=== PATIENT | female | born 1975 | race Caucasian/White ===

== ENCOUNTER 2017-10-19 16:40 | Emergency (ER) | payer MEDICARE, SELFPAY ==
[2017-10-19 16:41] VITALS: BMI 29.0
--- NOTE | 2017-10-19 16:42 | XR_ITS ---
XR chest 2V HISTORY: ITS.REASON: chest pain ORDERING PHYSICIAN: Dani Elizondo MD PATIENT AGE: 42 years COMPARISON: None available FINDINGS: Normal heart size. There are multiple pacer wires present to of which are present from the left subclavian approach without a pacemaker generator. Bipolar pacer present also from the right subclavian approach with a pacemaker generator present. No evidence of CHF. Calcified node is present in left hilum. Lungs are clear. No acute bony anomalies. IMPRESSION: Pacemaker present as described above, no acute finding
[2017-10-19 16:46] VITALS: BP 146/95; PULSE 72; RESP 20; TEMP 37; O2SAT 99; BMI 28.1
[2017-10-19 16:58] LABS: Basophils # 0.1 K/mm3 (0-0.2); Basophils % 1.1 % (0.1-2.0); Eosinophils # 0.3 K/mm3 (0.0-0.4); Eosinophils % 3.6 % (0.1-12.0); Hematocrit 42.9 % (37.0-47.0); Hemoglobin 14.5 g/dL (12.2-16.2); Lymphocytes # 2.5 K/mm3 (0.7-4.5); Lymphocytes % 35.1 K/mm3 (10-50); Mean Corpuscular HGB Conc 33.8 g/dL (31.8-35.4); Mean Corpuscular Hemoglobin 29.8 pg (27.0-31.2); Mean Corpuscular Volume 88.3 fl (81-99); Mean Platelet Volume 7.5 fl (7.4-10.4); Monocytes # 0.3 K/mm3 (0.1-1.0); Monocytes % 4.6 % (1.7-9.3); Neutrophils % 55.6 % (37.0-80.0); Platelet Count 257 K/mm3 (142-424); Red Blood Count 4.85 M/mm3 (4.20-5.40); Red Cell Distribution Width 13.9 % (11.5-17.5); White Blood Count 7.1 K/mm3 (4.8-10.8)
[2017-10-19 17:29] LABS: Alanine Aminotransferase 37 U/L (12-78); Albumin Level 4.1 gm/dL (3.4-5.0); Albumin/Globulin Ratio 1.2 (1.1-1.8); Alkaline Phosphatase 84 U/L (46-116); Aspartate Amino Transferase 18 U/L (15-37); Bilirubin,Total 0.3 mg/dL (0.2-1.0); Blood Urea Nitrogen 14 mg/dL (7-18); Calcium 8.9 mg/dL (8.5-10.1); Carbon Dioxide 30 mmol/L (21.0-32.0); Chloride 110 mmol/L (98-107); Creatine Kinase 54 U/L (26-192); Creatinine Clearance Estimated 120 mL/min (0-300); Creatinine,Serum 0.77 mg/dL (0.55-1.02); Estimated Glomerular Filt Rate 81 ml/min (>60); GFR (African American) 99 ML/MIN (>60); Globulin 3.5 gm/dl (1.3-3.2); Glucose 92 mg/dL (74-106); Sodium 148 mmol/L (136-145); Total Protein,Serum 7.6 gm/dL (6.4-8.2); Troponin I < 0.02 ng/ml (0.00-0.06)
[2017-10-19 17:30] LABS: CKMB Relative Index 0.9 U/L (0-4.0); Creatine Kinase MB < 0.5 mg/ml (0.0-3.6)
[2017-10-19 18:31] VITALS: BP 143/105; PULSE 82; O2SAT 97
--- NOTE | 2017-10-19 19:28 | [facility].EDCP ---
ED Disposition Clinical Impression: Chest pain Qualifiers: Chest pain type: unspecified Qualified Code(s): R07.9 - Chest pain, unspecified Disposition: Home, Self-Care Condition on Discharge: Good Referrals: José Chan MD [Staff Physician] - Time of Disposition: 19:52 - Critical Care Critical Care Time: No Attestation: On 10/19/17, the high probability of a clinically significant, sudden or life threatening deterioration of the following system(s) required my full and direct attention, intervention and personal management. The time I documented below is in addition to time spent performing reported procedures but includes the following listed in this critical care notation. Medical Decision Making - Medical Records Medical records reviewed: Yes: I reviewed the patient's medical records. Vital Signs: 10/19/17 16:46 10/19/17 18:31 Temperature 98.6 F Temperature Source Oral Pulse Rate [Left Brachial] 72 82 Respiratory Rate 20 Blood Pressure [Left Arm] 146/95 143/105 Blood Pressure Mean [Left Arm] 112 117 Blood Pressure Source [Left Arm] Automatic Cuff Automatic Cuff Blood Pressure Position [Left Arm] Sitting Supine 02 Sat by Pulse Oximetry 99 97 Oxygen Delivery Method Room Air Room Air - Lab Data Lab results reviewed: Yes: I reviewed the patient's lab results. Lab Results 10/19/17 16:48: WBC 7.1, RBC 4.85, Hgb 14.5, Hct 42.9, MCV 88.3, MCH 29.8, MCHC 33.8, RDW 13.9, Plt Count 257, MPV 7.5, Neut % (Auto) 55.6, Lymph % (Auto) 35.1, [place] % (Auto) 4.6, Eos % (Auto) 3.6, Baso % (Auto) 1.1, Neut # (Auto) 4.0, Lymph # (Auto) 2.5, [place] # (Auto) 0.3, Eos # (Auto) 0.3, Baso # (Auto) 0.1 10/19/17 16:48: Sodium 148 H, Potassium 4.0, Chloride 110 H, Carbon Dioxide 30, Anion Gap 12.0, BUN 14, Creatinine 0.77, Estimated Creat Clear 120, Estimated GFR 81, Est GFR ( Amer) 99, Glucose 92, Calcium 8.9, Total Bilirubin 0.3, AST 18, ALT 37, Alkaline Phosphatase 84, Total Creatine Kinase 54, CK-MB (CK-2) < 0.5, CK-MB (CK-2) Rel Index 0.9, Troponin I < 0.02, Total Protein 7.6, Albumin 4.1, Globulin 3.5 H, Albumin/Globulin Ratio 1.2 Result diagrams: 10/19/17 16:48 10/19/17 16:48 Orders (Tests/Meds): ED MEDICATIONS Generic Name Dose Route Start Last Admin Trade Name Freq PRN Reason Stop Dose Admin Nitroglycerin 0.4 mg 10/19/17 17:24 10/19/17 17:45 Nitrostat 0.4mg Sl Tablet SL 11/18/17 17:23 0.4 mg [id number] PRN Administration Chest Pain Discontinued Medications Generic Name Dose Route Start Last Admin Trade Name Freq PRN Reason Stop Dose Admin Morphine Sulfate 1 mg 10/19/17 19:30 10/19/17 19:43 Morphine 2mg/Ml Syringe IV 10/19/17 19:31 1 mg ONCE ONE Administration Ondansetron HCl 4 mg 10/19/17 19:30 10/19/17 19:38 Zofran 4mg/2ml Vial IV 10/19/17 19:31 Not Given ONCE ONE ORDERS Category Date Time Status Chest XR 2 view (NOT portable) [XR chest 2V] Stat Exams 10/19/17 16:42 Taken Cardiac Enzymes Stat Lab 10/19/17 19:22 Ordered - Radiology Data #1 Image(s): Chest Image Reviewed: Yes I reviewed the patient's radiology results Preliminary Findings: Normal/NAD - ECG Data Tracing #1 I reviewed this ECG and interpreted as documented below: Additional Comments: paced rhythm, rate 89. - Physician Consults Physician Consulted: Dr Chan Time: 19:28 Reason -: Pt condition, Cardiology Eval/Care Comment/Response: Dr. Chan requested patient to undergo a second cardiac enzyme, if positive to admit patient to service, if negative to discharge patient home and have her follow-up with cardiology clinic in the morning. - Jassi Inquiry Pt receiving controlled substance: No - Reevaluation(s) Time: 20:00 Reevaluation #1: Appears medically stable, no acute distress, awaiting lab results. 20:05-case signed out to Dr Burden, pending results Chest Pain HPI - General Chief Complaint: Chest Pain Stated Complaint: chest pain
--- NOTE | 2017-10-19 19:31 | ED_ITS ---
ED Disposition Clinical Impression: Chest pain Qualifiers: Chest pain type: unspecified Qualified Code(s): R07.9 - Chest pain, unspecified Disposition: Home, Self-Care Condition on Discharge: Good Referrals: José Chan MD [Staff Physician] - Time of Disposition: 19:52 - Critical Care Critical Care Time: No Attestation: On 10/19/17, the high probability of a clinically significant, sudden or life threatening deterioration of the following system(s) required my full and direct attention, intervention and personal management. The time I documented below is in addition to time spent performing reported procedures but includes the following listed in this critical care notation. Medical Decision Making - Medical Records Medical records reviewed: Yes: I reviewed the patient's medical records. Vital Signs: 10/19/17 16:46 10/19/17 18:31 Temperature 98.6 F Temperature Source Oral Pulse Rate [Left Brachial] 72 82 Respiratory Rate 20 Blood Pressure [Left Arm] 146/95 143/105 Blood Pressure Mean [Left Arm] 112 117 Blood Pressure Source [Left Arm] Automatic Cuff Automatic Cuff Blood Pressure Position [Left Arm] Sitting Supine 02 Sat by Pulse Oximetry 99 97 Oxygen Delivery Method Room Air Room Air - Lab Data Lab results reviewed: Yes: I reviewed the patient's lab results. Lab Results 10/19/17 16:48: WBC 7.1, RBC 4.85, Hgb 14.5, Hct 42.9, MCV 88.3, MCH 29.8, MCHC 33.8, RDW 13.9, Plt Count 257, MPV 7.5, Neut % (Auto) 55.6, Lymph % (Auto) 35.1 , [place] % (Auto) 4.6, Eos % (Auto) 3.6, Baso % (Auto) 1.1, Neut # (Auto) 4.0, Lymph # (Auto) 2.5, [place] # (Auto) 0.3, Eos # (Auto) 0.3, Baso # (Auto) 0.1 10/19/17 16:48: Sodium 148 H, Potassium 4.0, Chloride 110 H, Carbon Dioxide 30, Anion Gap 12.0, BUN 14, Creatinine 0.77, Estimated Creat Clear 120, Estimated GFR 81, Est GFR ( Amer) 99, Glucose 92, Calcium 8.9, Total Bilirubin 0.3 , AST 18, ALT 37, Alkaline Phosphatase 84, Total Creatine Kinase 54, CK-MB (CK-2 ) < 0.5, CK-MB (CK-2) Rel Index 0.9, Troponin I < 0.02, Total Protein 7.6, Albumin 4.1, Globulin 3.5 H, Albumin/Globulin Ratio 1.2 Result diagrams: 10/19/17 16:48 10/19/17 16:48 Orders (Tests/Meds): ED MEDICATIONS Generic Name Dose Route Start Last Admin Trade Name Freq PRN Reason Stop Dose Admin Nitroglycerin 0.4 mg 10/19/17 17:24 10/19/17 17:45 Nitrostat 0.4mg Sl Tablet SL 11/18/17 17:23 0.4 mg [id number] PRN Administration Chest Pain Discontinued Medications Generic Name Dose Route Start Last Admin Trade Name Freq PRN Reason Stop Dose Admin Morphine Sulfate 1 mg 10/19/17 19:30 10/19/17 19:43 Morphine 2mg/Ml Syringe IV 10/19/17 19:31 1 mg ONCE ONE Administration Ondansetron HCl 4 mg 10/19/17 19:30 10/19/17 19:38 Zofran 4mg/2ml Vial IV 10/19/17 19:31 Not Given ONCE ONE ORDERS Category Date Time Status Chest XR 2 view (NOT portable) [XR chest 2V] Stat Exams 10/19/17 16:42 Taken Cardiac Enzymes Stat Lab 10/19/17 19:22 Ordered - Radiology Data #1 Image(s): Chest Image Reviewed: Yes I reviewed the patient's radiology results Preliminary Findings: Normal/NAD - ECG Data Tracing #1 I reviewed this ECG and interpreted as documented below: Additional Comments: paced rhythm, r
--- NOTE | 2017-10-19 20:52 | PC.NURSE ---
pt reports receiving 324mg of aspirin via [facility] [employer]
[2017-10-19 20:55] LABS: Creatine Kinase 50 U/L (26-192); Troponin I < 0.02 ng/ml (0.00-0.06)
[2017-10-19 20:57] LABS: Creatine Kinase MB < 0.5 mg/ml (0.0-3.6)
[2017-10-19 21:33] VITALS: BP 177/92; PULSE 90; RESP 16; TEMP 37; O2SAT 97
== END 2017-10-19 21:35 | disposition home or self-care (01) ==
PROVIDERS: Emergency Medicine; Emergency Provider Emergency Medicine
DX: R07.9 Chest pain, unspecified (principal); R00.0 Tachycardia, unspecified; Z95.0 Presence of cardiac pacemaker; F41.9 Anxiety disorder, unspecified
CPT/HCPCS: 71046; 80053; 82550; 82553; 84484; 85025; 93005; 96374; 96375; 99282

== ENCOUNTER → 2019-01-19 09:33 | Outpatient (CLI) | payer MEDICARE, SELFPAY ==
--- NOTE | 2019-01-19 09:38 | MM_ITS ---
MM Dig screening mamm BI w/CAD CAD Screening COMPARISON: Digital mammograms with CAD 06/18/2015 INDICATION: There is a history of breast cancer patient maternal grandmother. TECHNIQUE: Standard CC and MLO images were obtained. R2 CAD reviewed. FINDINGS: Moderate fibroglandular densities are seen in the central portions of both breast and the findings are bilateral and symmetrical. There is a mole marker right breast. There are pacemaker leads seen overlying left axilla. There is no suspicious lesion and there are no suspicious microcalcifications. There is a stable asymmetric nodular density central portion of the right breast. IMPRESSION: Moderate breast density with no suspicious lesion seen BI-RADS Category: 2 Benign Finding(s) RECOMMENDED FOLLOW-UP: 1YR - 1 YEAR FOLLOW-UP (A letter has been sent to the patient regarding results of the study.)
== END ==
PROVIDERS: PCP Nurse Practitioner Family; Visit Provider Nurse Practitioner Family
DX: Z12.31 Encounter for screening mammogram for malignant neoplasm of breast (principal)
CPT/HCPCS: 77067

== ENCOUNTER 2019-02-28 08:58 | Outpatient (RCR) | payer MEDICARE, SELFPAY | END 2019-03-27 16:04 | disposition home or self-care (01) | LOC: PT.CARL 08:58 | PROVIDERS: Visit Provider Internal Medicine Medical Oncology | DX: M62.81 Muscle weakness (generalized) (principal); G45.9 Transient cerebral ischemic attack, unspecified | CPT/HCPCS: 97110; 97163 ==

== ENCOUNTER 2019-02-28 09:09 | Outpatient (RCR) | payer MEDICARE, SELFPAY | END 2019-02-28 13:00 | disposition home or self-care (01) | LOC: OT 09:09 | PROVIDERS: Visit Provider Internal Medicine Medical Oncology | DX: M62.81 Muscle weakness (generalized) (principal) | CPT/HCPCS: 97166 ==